=== PATIENT | male | born 1965 | race African-American/Black ===

== ENCOUNTER 2022-12-18 13:50 | Emergency (ER) | payer OTHER, SELFPAY ==
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
[2022-12-18 13:47] VITALS: BP 109/63; PULSE 80; RESP 18; TEMP 37.2; O2SAT 99
[2022-12-18] MEDS: IBUPROFEN 600 MG TABLET PO (14:19)
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
[2022-12-18 15:39] VITALS: PULSE 60; RESP 18; O2SAT 98
== END 2022-12-18 15:40 | disposition home or self-care (01) ==
PROVIDERS: Emergency Provider Emergency Medicine; PCP Internal Medicine Gastroenterology
DX: S16.1XXA Strain of muscle, fascia and tendon at neck level, initial encounter (principal); M47.812 Spondylosis without myelopathy or radiculopathy, cervical region; V43.52XA Car driver injured in collision with other type car in traffic accident, initial encounter
CPT/HCPCS: 72040; 99283; A9270